=== PATIENT | male | born 2005 | race African-American/Black ===

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

== ENCOUNTER 2025-04-09 12:18 | Emergency (ER) | payer MEDICAID ==
[~2025-04-09] VITALS: Ht 177.8 cm; Wt 75.0 kg
[2025-04-09 12:31] VITALS: O2SAT 100
[2025-04-09] MEDS ORDERED: NAPR-679 MT (14:19)
[2025-04-09] MEDS: ACETAMINOPHEN 500MG TABLET PO ONE (14:58)
[2025-04-09 15:07] VITALS: BP 129/92; PULSE 71; RESP 16; TEMP 36.7; O2SAT 100
== END 2025-04-09 15:11 | disposition home or self-care (01) ==
LOC: ER 12:18
DX: L60.0 Ingrowing nail (principal); J45.909 Unspecified asthma, uncomplicated
CPT/HCPCS: 99284; 29515; 73600; 73620; A6449

== ENCOUNTER 2025-06-30 08:38 | Emergency (ER) | payer MEDICAID ==
[~2025-06-30] VITALS: Ht 177.8 cm; Wt 75.0 kg
[~2025-06-30 08:38] MED LIST changes: +NAPR-679 MT
[2025-06-30 08:51] VITALS: O2SAT 99
[2025-06-30 09:47] LABS: BASOPHILS % 0.6 % (0.0-2.0); EOSINOPHILS % 0.7 % (0.0-5.0); HEMATOCRIT. 47.7 % (42.0-52.0); HEMOGLOBIN. 15.8 g/dL (14.0-18.0); LYMPHOCYTES % 21.5 % (20.0-50.0); MEAN PLATELET VOLUME 8.4 fl (7.4-10.4); MONOCYTES % 10.9 % (2.0-8.0); NEUTROPHILS % 66.3 % (40.0-76.0); PLATELET 255 x1000/uL (130-400); RED BLOOD CELL COUNT 6.04 mill/uL (4.7-6.1); RED CELL DISTRIBUTION WIDTH 13.4 % (11.6-14.6)
[2025-06-30 10:01] LABS: CREATININE 1.4 mg/dL (0.6-1.3); UREA NITROGEN BLOOD 9 mg/dL (9-23)
[2025-06-30 10:02] LABS: PROTEIN TOTAL 8.1 g/dL (6.0-8.3)
[2025-06-30 10:03] LABS: ASPARTATE AMINOTRANSFERASE 132 IU/L (<34); BILIRUBIN TOTAL 0.9 mg/dL (0.1-1.0)
[2025-06-30] MEDS: LACTATED RINGERS 1,000 ML IV SCH (10:07)
[2025-06-30] MEDS: KETOROLAC 15MG/ML VIAL IV ONE (10:07)
[2025-06-30] MEDS: METOCLOPRAMIDE HCL 10MG/2ML VIAL IV ONE (10:07)
[2025-06-30] MEDS: ACETAMINOPHEN 325MG TABLET PO ONE (10:07)
[2025-06-30] MEDS ORDERED: LACTATED RINGERS 1,000 ML IV SCH (10:15)
[2025-06-30 14:13] VITALS: BP 129/86; PULSE 94; RESP 16; TEMP 36.8; O2SAT 100
[2025-06-30 14:46] LABS: INFLUENZA TYPE A Presumptive Negative (Pres. Neg.); INFLUENZA TYPE B Presumptive Negative (Pres. Neg.)
== END 2025-06-30 14:39 | disposition home or self-care (01) ==
LOC: ER 08:38 → CANBEDREQ 12:24 → ER 14:39
DX: J02.9 Acute pharyngitis, unspecified (principal); J45.909 Unspecified asthma, uncomplicated; R51.9 Headache, unspecified; N17.9 Acute kidney failure, unspecified; Z79.1 Long term (current) use of non-steroidal anti-inflammatories (NSAID); Z79.51 Long term (current) use of inhaled steroids
CPT/HCPCS: 99291; 96374; 70450; 76705; 71045; 96361; 96375; 87426; 80053; 87430; 85025; 87070; 87804 ×2; 36415; J1885; J2765